=== PATIENT | male | born 1955 | race Caucasian/White ===

== ENCOUNTER 2021-01-22 12:50 | Emergency (ER) | payer MEDICARE, OTHER ==
[2021-01-22 14:06] LABS: BASOPHIL 0.9 % (0-2); EOSINOPHIL 2.7 % (0-7); HCT 45.6 % (42.0-52.0); HGB 15.8 g/dl (13.2-18.0); LYMPHOCYTE 14.5 % (15-48); MCH 32.2 pg (25.0-31.0); MCHC 34.6 g/dL (32.0-36.0); MCV 92.9 fL (78.0-100.0); MONOCYTE 13.2 % (0-12); MPV 9.3 fL (6.0-9.5); NEUTROPHIL 68.3 % (41-80); NRBC 0; PLT 236 K/uL (150-400); RBC 4.91 M/uL (4.70-6.00); RDW 12.7 % (11.5-14.0); WBC 7.8 K/uL (4.0-10.5)
[2021-01-22 14:26] LABS: ALBUMIN 3.8 g/dL (3.4-5.0); BUN/CREAT RATIO (CALC) 16.9 RATIO; CREATININE 0.59 mg/dL (0.67-1.17); GLOBULIN (CALCULATION) 4.8 g/dL; TOTAL PROTEIN 8.6 g/dL (6.4-8.2)
[2021-01-22 15:01] LABS: BILIRUBIN NEGATIVE (NEGATIVE); BLOOD NEGATIVE Ery/uL (NEGATIVE); CLARITY CLEAR (CLEAR); COLOR YELLOW (YELLOW); GLUCOSE (U) NORMAL (NORMAL); LEUKOCYTES NEGATIVE Leu/uL (NEGATIVE); NITRITE NEGATIVE (NEGATIVE); PROTEIN NEGATIVE (NEGATIVE); SPECIFIC GRAVITY 1.015 (1.001-1.030)
== END 2021-01-22 16:45 | disposition home or self-care (01) ==
LOC: FER 12:50
PROVIDERS: Nurse Practitioner Family
DX: R10.84 Generalized abdominal pain (principal); R11.0 Nausea; I10 Essential (primary) hypertension; R18.8 Other ascites; N28.9 Disorder of kidney and ureter, unspecified; Z98.84 Bariatric surgery status; Z98.890 Other specified postprocedural states; Z88.2 Allergy status to sulfonamides; Z88.6 Allergy status to analgesic agent
CPT/HCPCS: 36415; 80053; 81003; 82150; 83690; 85025; J2270; J2405; J7030

== ENCOUNTER 2021-01-31 15:28 | Emergency (ER) | payer MEDICARE, OTHER ==
[2021-01-31 16:40] LABS: BASOPHIL 0.9 % (0-2); EOSINOPHIL 3.3 % (0-7); HGB 12.8 g/dl (13.2-18.0); LYMPHOCYTE 8.7 % (15-48); MCH 32.3 pg (25.0-31.0); MCHC 35.6 g/dL (32.0-36.0); MCV 90.9 fL (78.0-100.0); MONOCYTE 14.3 % (0-12); MPV 9.7 fL (6.0-9.5); NEUTROPHIL 72.2 % (41-80); NRBC 0; PLT 220 K/uL (150-400); RBC 3.96 M/uL (4.70-6.00); RDW 12.4 % (11.5-14.0); WBC 7.9 K/uL (4.0-10.5)
[2021-01-31 16:56] LABS: ALBUMIN 3.1 g/dL (3.4-5.0); BILIRUBIN - TOTAL 0.9 mg/dL (0.2-1.0); BUN/CREAT RATIO (CALC) 21.1 RATIO; CREATININE 0.71 mg/dL (0.67-1.17); GLOBULIN (CALCULATION) 3.9 g/dL; MAGNESIUM 1.9 mg/dL (1.8-2.4); POTASSIUM 5.8 mmol/L (3.5-5.1)
[2021-01-31 17:51] LABS: BILIRUBIN NEGATIVE (NEGATIVE); BLOOD NEGATIVE Ery/uL (NEGATIVE); CLARITY CLEAR (CLEAR); COLOR YELLOW (YELLOW); GLUCOSE (U) NORMAL (NORMAL); LEUKOCYTES NEGATIVE Leu/uL (NEGATIVE); NITRITE NEGATIVE (NEGATIVE); PROTEIN TRACE (LOW) mg/dL (NEGATIVE)
[2021-01-31 18:06] LABS: LACTIC ACID 1.5 mmol/L (0.4-1.9)
[2021-01-31 20:38] LABS: CREATININE 0.59 mg/dL (0.67-1.17); POTASSIUM 5.6 mmol/L (3.5-5.1)
[2021-01-31] MEDS ORDERED: MEDROL 4MG DOSEP4 MG PO (22:35)
[2021-01-31] MEDS ORDERED: BACLOFEN 10MG T10 MG PO (22:35)
[2021-01-31] MEDS ORDERED: PERCOCET 5-3251 EACH PO (22:35)
== END 2021-01-31 23:08 | disposition home or self-care (01) ==
LOC: FER 15:28
PROVIDERS: Emergency Medicine Emergency Medical Services
DX: R56.9 Unspecified convulsions (principal); S09.90XA Unspecified injury of head, initial encounter; M25.551 Pain in right hip; M25.552 Pain in left hip; Z20.822 Contact with and (suspected) exposure to COVID-19; E87.1 Hypo-osmolality and hyponatremia; R10.817 Generalized abdominal tenderness; G89.29 Other chronic pain; I10 Essential (primary) hypertension; Z98.84 Bariatric surgery status; Z88.2 Allergy status to sulfonamides; Z88.6 Allergy status to analgesic agent; W10.9XXA Fall (on) (from) unspecified stairs and steps, initial encounter; I49.8 Other specified cardiac arrhythmias; I44.0 Atrioventricular block, first degree
CPT/HCPCS: 36415; 70450; 71250; 72125; 72128; 72131; 80048; 80053; 81003; 82550; 83605; 83735; 84484; 85025; 87040; 93005; J1170; J1885; J2270; J2405; J2800; J7030; J7050; U0002

== ENCOUNTER 2021-02-22 16:05 | Inpatient (IN) | payer MEDICARE, OTHER ==
[~2021-02-22] VITALS: Ht 177.8 cm; Wt 87.0 kg
[~2021-02-22 16:05] MED LIST: BACLOFEN 10MG T10 MG PO; MEDROL 4MG DOSEP4 MG PO; PERCOCET 5-3251 EACH PO
[2021-02-22 17:17] LABS: BASOPHIL 0.3 % (0-2); EOSINOPHIL 0.1 % (0-7); HGB 14.1 g/dl (13.2-18.0); LYMPHOCYTE 3.4 % (15-48); MCH 31.8 pg (25.0-31.0); MCHC 34.4 g/dL (32.0-36.0); MCV 92.3 fL (78.0-100.0); MONOCYTE 9.3 % (0-12); MPV 9.8 fL (6.0-9.5); NEUTROPHIL 86.4 % (41-80); NRBC 0; PLT 195 K/uL (150-400); RBC 4.44 M/uL (4.70-6.00); RDW 12.9 % (11.5-14.0); WBC 17.2 K/uL (4.0-10.5)
[2021-02-22 17:34] LABS: BILIRUBIN 2+ mg/dL (NEGATIVE); BLOOD NEGATIVE Ery/uL (NEGATIVE); CLARITY CLEAR (CLEAR); COLOR YELLOW (YELLOW); GLUCOSE (U) TRACE mg/dL (NORMAL); LEUKOCYTES TRACE Leu/uL (NEGATIVE); NITRITE POSITIVE (NEGATIVE); PROTEIN TRACE (LOW) mg/dL (NEGATIVE); SPECIFIC GRAVITY 1.025 (1.001-1.030); UROBILINOGEN 0.2 mg/dL (0.2-1.0)
[2021-02-22 17:48] LABS: ALBUMIN 3.4 g/dL (3.4-5.0); BILIRUBIN - TOTAL 1.1 mg/dL (0.2-1.0); BUN/CREAT RATIO (CALC) 23.7 RATIO; CREATININE 1.9 mg/dL (0.67-1.17); GLOBULIN (CALCULATION) 4.5 g/dL; TOTAL PROTEIN 7.9 g/dL (6.4-8.2)
[2021-02-22 17:51] LABS: POTASSIUM 6.7 mmol/L (3.5-5.1)
[2021-02-22 18:06] LABS: AMORPHOUS URATES CRYSTALS TRACE; SQUAMOUS EPITHELIAL CELLS RARE; URINARY WBC RARE
[2021-02-22] MEDS ORDERED: LISINOPRIL40 MG PO (18:24)
[2021-02-22] MEDS ORDERED: FOLIC ACID1 M1 PO (18:25)
[2021-02-22] MEDS ORDERED: SODIUM CHLORIDE1 GM PO (18:25)
[2021-02-22] MEDS ORDERED: SERTRALINE HCL50 MG PO (18:26)
[2021-02-22 20:59] LABS: BUN/CREAT RATIO (CALC) 29.2 RATIO; CREATININE 1.61 mg/dL (0.67-1.17); POTASSIUM 6.1 mmol/L (3.5-5.1)
[2021-02-23 02:43] LABS: BUN/CREAT RATIO (CALC) 37.9 RATIO; CREATININE 1.16 mg/dL (0.67-1.17); POTASSIUM 5.7 mmol/L (3.5-5.1)
[2021-02-23 08:33] LABS: BASOPHIL 0.4 % (0-2); EOSINOPHIL 1.4 % (0-7); HCT 37.1 % (42.0-52.0); HGB 12.8 g/dl (13.2-18.0); LYMPHOCYTE 6.3 % (15-48); MCH 31.8 pg (25.0-31.0); MCHC 34.5 g/dL (32.0-36.0); MCV 92.3 fL (78.0-100.0); MONOCYTE 12.6 % (0-12); MPV 9.6 fL (6.0-9.5); NEUTROPHIL 78.7 % (41-80); NRBC 0; PLT 167 K/uL (150-400); RBC 4.02 M/uL (4.70-6.00); WBC 8.4 K/uL (4.0-10.5)
[2021-02-23 08:51] LABS: ALBUMIN 2.8 g/dL (3.4-5.0); BUN/CREAT RATIO (CALC) 41.3 RATIO; CREATININE 0.92 mg/dL (0.67-1.17); GLOBULIN (CALCULATION) 3.8 g/dL; POTASSIUM 5.2 mmol/L (3.5-5.1); TOTAL PROTEIN 6.6 g/dL (6.4-8.2)
[2021-02-23 11:51] LABS: INR 1.38 (0.9-1.2); PROTHROMBIN TIME 16.3 SECONDS (11.8-13.4)
[2021-02-23 14:33] LABS: BUN/CREAT RATIO (CALC) 41.8 RATIO; CREATININE 0.79 mg/dL (0.67-1.17)
[2021-02-24 04:08] LABS: INR 1.35 (0.9-1.2)
[2021-02-24 04:09] LABS: BASOPHIL 1.1 % (0-2); EOSINOPHIL 3.5 % (0-7); HCT 32.1 % (42.0-52.0); HGB 11.1 g/dl (13.2-18.0); LYMPHOCYTE 10.3 % (15-48); MCH 32.4 pg (25.0-31.0); MCHC 34.6 g/dL (32.0-36.0); MCV 93.6 fL (78.0-100.0); MONOCYTE 15.1 % (0-12); MPV 9.9 fL (6.0-9.5); NEUTROPHIL 69.2 % (41-80); NRBC 0; PLT 165 K/uL (150-400); RBC 3.43 M/uL (4.70-6.00); WBC 6.6 K/uL (4.0-10.5)
[2021-02-24 04:21] LABS: ALBUMIN 2.5 g/dL (3.4-5.0); BILIRUBIN - TOTAL 1.2 mg/dL (0.2-1.0); BUN/CREAT RATIO (CALC) 32.9 RATIO; CREATININE 0.76 mg/dL (0.67-1.17); GLOBULIN (CALCULATION) 3.4 g/dL; MAGNESIUM 1.7 mg/dL (1.8-2.4); TOTAL PROTEIN 5.9 g/dL (6.4-8.2)
[2021-02-24 10:07] LABS: HBSAG SCREEN Negative (Negative); HEP A AB, IGM Negative (Negative); HEP B CORE AB, IGM Negative (Negative); HEP C VIRUS AB <0.1 (0.0-0.9)
== END 2021-02-25 11:32 | disposition home or self-care (01) | DRG 394 ==
LOC: FER 16:05 → FMS 20:24 → FTCU 20:24
PROVIDERS: Emergency Medicine; Family Medicine; Nurse Practitioner; ADMIT Internal Medicine
DX: K42.0 Umbilical hernia with obstruction, without gangrene (principal); N17.9 Acute kidney failure, unspecified; E87.1 Hypo-osmolality and hyponatremia; Z20.822 Contact with and (suspected) exposure to COVID-19; E87.5 Hyperkalemia; K70.30 Alcoholic cirrhosis of liver without ascites; K43.9 Ventral hernia without obstruction or gangrene; I10 Essential (primary) hypertension; Z96.653 Presence of artificial knee joint, bilateral; K72.90 Hepatic failure, unspecified without coma; N28.89 Other specified disorders of kidney and ureter; Z98.890 Other specified postprocedural states; Z98.84 Bariatric surgery status; Z82.0 Family history of epilepsy and other diseases of the nervous system; Z88.6 Allergy status to analgesic agent; Z87.891 Personal history of nicotine dependence; Z79.899 Other long term (current) drug therapy; Z88.2 Allergy status to sulfonamides
CPT/HCPCS: 36415; 80048; 80053; 80074; 81001; 82962; 83605; 83690; 83735; 84443; 85025; 85610; 93005; C9113; J0610; J1170; J2405; J7030; U0002

== ENCOUNTER 2021-02-26 16:10 | Day surgery (SDCO) | payer MEDICARE, OTHER ==
[~2021-02-26] VITALS: Ht 178 cm; Wt 89.0 kg
[~2021-02-26 16:10] MED LIST changes: +FOLIC ACID1 M1 PO; +LISINOPRIL40 MG PO; +SERTRALINE HCL50 MG PO; +SODIUM CHLORIDE1 GM PO
[2021-02-26 17:37] LABS: BASOPHIL 0.6 % (0-2); EOSINOPHIL 1.1 % (0-7); HCT 43.3 % (42.0-52.0); LYMPHOCYTE 6.4 % (15-48); MCH 32.3 pg (25.0-31.0); MCHC 34.9 g/dL (32.0-36.0); MCV 92.5 fL (78.0-100.0); MONOCYTE 17.8 % (0-12); MPV 9.7 fL (6.0-9.5); NEUTROPHIL 71.4 % (41-80); NRBC 0; PLT 259 K/uL (150-400); RBC 4.68 M/uL (4.70-6.00); RDW 12.7 % (11.5-14.0); WBC 9.8 K/uL (4.0-10.5)
[2021-02-26 17:39] LABS: HGB 15.1 g/dl (13.2-18.0)
[2021-02-26 18:07] LABS: INR 1.3 (0.9-1.2); PROTHROMBIN TIME 15.5 SECONDS (11.8-13.4)
[2021-02-26 18:08] LABS: PTT 34.1 SECONDS (24.4-34.7)
[2021-02-26 18:17] LABS: LACTIC ACID 1.6 mmol/L (0.4-1.9)
[2021-02-26 18:18] LABS: BILIRUBIN - TOTAL 0.9 mg/dL (0.2-1.0); BUN/CREAT RATIO (CALC) 14.3 RATIO; CREATININE 0.7 mg/dL (0.67-1.17); GLOBULIN (CALCULATION) 4.1 g/dL; POTASSIUM 4.4 mmol/L (3.5-5.1); TOTAL PROTEIN 7.1 g/dL (6.4-8.2)
[2021-02-27 06:11] LABS: BASOPHIL 0.7 % (0-2); EOSINOPHIL 2.1 % (0-7); HCT 34.8 % (42.0-52.0); LYMPHOCYTE 11.7 % (15-48); MCH 31.9 pg (25.0-31.0); MCHC 34.5 g/dL (32.0-36.0); MCV 92.6 fL (78.0-100.0); MONOCYTE 18.2 % (0-12); MPV 9.4 fL (6.0-9.5); NEUTROPHIL 64.7 % (41-80); NRBC 0; PLT 232 K/uL (150-400); RBC 3.76 M/uL (4.70-6.00); RDW 12.6 % (11.5-14.0); WBC 8.1 K/uL (4.0-10.5)
[2021-02-27 07:09] LABS: ALBUMIN 2.6 g/dL (3.4-5.0); BUN/CREAT RATIO (CALC) 12.5 RATIO; CREATININE 0.64 mg/dL (0.67-1.17); GLOBULIN (CALCULATION) 3.5 g/dL; TOTAL PROTEIN 6.1 g/dL (6.4-8.2)
[2021-02-28 05:46] LABS: BASOPHIL 0.9 % (0-2); EOSINOPHIL 4.3 % (0-7); HCT 32.3 % (42.0-52.0); HGB 11.1 g/dl (13.2-18.0); LYMPHOCYTE 11.6 % (15-48); MCHC 34.4 g/dL (32.0-36.0); MCV 93.1 fL (78.0-100.0); MPV 9.5 fL (6.0-9.5); NRBC 0; PLT 229 K/uL (150-400); RBC 3.47 M/uL (4.70-6.00); RDW 12.8 % (11.5-14.0); WBC 7.4 K/uL (4.0-10.5)
[2021-02-28 06:03] LABS: BUN/CREAT RATIO (CALC) 11.7 RATIO; CREATININE 0.6 mg/dL (0.67-1.17); MAGNESIUM 1.6 mg/dL (1.8-2.4); POTASSIUM 3.8 mmol/L (3.5-5.1)
[2021-02-28] MEDS ORDERED: NORCO 5-325 TA1 EACH PO (14:43)
== END 2021-02-28 15:02 | disposition home or self-care (01) ==
LOC: FER 16:10 → FMS 17:56
PROVIDERS: Emergency Medicine; Nurse Practitioner; ADMIT Internal Medicine
DX: K43.0 Incisional hernia with obstruction, without gangrene (principal); I10 Essential (primary) hypertension; K74.69 Other cirrhosis of liver; F32.9 Major depressive disorder, single episode, unspecified; F41.9 Anxiety disorder, unspecified; E87.1 Hypo-osmolality and hyponatremia; F12.929 Cannabis use, unspecified with intoxication, unspecified; Z20.822 Contact with and (suspected) exposure to COVID-19; Z98.84 Bariatric surgery status; Z96.653 Presence of artificial knee joint, bilateral; Z79.899 Other long term (current) drug therapy; Z88.2 Allergy status to sulfonamides; Z88.8 Allergy status to other drugs, medicaments and biological substances
CPT/HCPCS: 36415; 80048; 80053; 83605; 83690; 83735; 85025; 85610; 85730; 93005; C1781; G0378; J0696; J1170; J1644; J2250; J2405; J2704; J3010; J7030; J7120; U0002

== ENCOUNTER → 2022-02-17 | Day surgery (SDC) | payer OTHER ==
[~2022-02-17] VITALS: Ht 177.8 cm; Wt 97.7 kg
[~2022-02-17] MED LIST changes: +FLUTICASONE PRO16 GM INH; +HYDROXYZINE 10M10 MG PO; +IRON18 MG PO; +MONTELUKAST SOD10 MG PO; +NORCO 5-325 TA1 EACH PO; +PANTOPRAZOLE SO40 MG PO; +TRAZODONE 100M100 MG PO
[2022-02-17 09:40] LABS: HGB 12.5 g/dl (13.2-18.0); MCH 33.6 pg (25.0-31.0); MCHC 35.7 g/dL (32.0-36.0); MCV 94.1 fL (78.0-100.0); MPV 9.7 fL (6.0-9.5); RBC 3.72 M/uL (4.70-6.00); WBC 5.5 K/uL (4.0-10.5)
[2022-02-17 09:56] LABS: INR 1.22 (0.9-1.2); PTT 34.6 SECONDS (24.9-34.6)
== END | disposition home or self-care (01) ==
LOC: FAS 09:07
PROVIDERS: Student in an Organized Health Care Education/Training Program
DX: K64.8 Other hemorrhoids (principal); K63.89 Other specified diseases of intestine; K21.9 Gastro-esophageal reflux disease without esophagitis; Z86.010 Personal history of colon polyps
CPT/HCPCS: 36415; 85610; 85730; 86850; 86900; 86901; J1100; J1610; J2704; J7120